=== PATIENT | male | born 1955 | race Caucasian/White ===

== ENCOUNTER 2018-09-24 05:51 | Observation (INO) | payer MEDICARE ==
[2018-09-24] MEDS ORDERED: NORMAL SALINE 1000 ML 1,000 ML IV ONE (06:23)
[2018-09-24 06:31] LABS: ABSOLUTE BASOPHILS # (AUTO) 0.1 10^3/uL (0.0-0.2); ABSOLUTE EOSINOPHILS # (AUTO) 0.2 10^3/uL (0.0-0.6); ABSOLUTE LYMPHOCYTES (AUTO) 2.6 10^3/uL (0.5-4.7); ABSOLUTE MONOCYTES (AUTO) 0.3 10^3/uL (0.1-1.4); ABSOLUTE NEUT (AUTO) 9.5 10^3/uL (1.7-8.2); BASOPHILS % (AUTO) 0.5 % (0-2); EOSINOPHILS % (AUTO) 1.6 % (0-6); HEMATOCRIT 43.2 % (37.9-51.0); HEMOGLOBIN 14.5 g/dL (13.5-17.0); LYMPHOCYTES % (AUTO) 20.8 % (13-45); MEAN CORPUSCULAR HEMOGLOBIN 30.5 pg (27.0-33.4); MEAN CORPUSCULAR HGB CONC 33.7 g/dL (32.0-36.0); MEAN CORPUSCULAR VOLUME 90 fl (80-97); MONOCYTES % (AUTO) 2.6 % (3-13); PLATELET COUNT 304 10^3/uL (150-450); RED BLOOD COUNT 4.77 10^6/uL (4.35-5.55); RED CELL DISTRIBUTION WIDTH 13.1 % (11.5-14.0); SEGMENTED NEUTROPHILS % (AUTO) 74.5 % (42-78); TOTAL CELLS COUNTED % (AUTO) 100 %; WHITE BLOOD COUNT 12.7 10^3/uL (4.0-10.5)
[2018-09-24 06:39] LABS: ALANINE AMINOTRANSFERASE 26 U/L (21-72); ALBUMIN 4.9 g/dL (3.5-5.0); ALKALINE PHOSPHATASE 90 U/L (38-126); ANION GAP 17 (5-19); ASPARTATE AMINO TRANSFERASE 29 U/L (17-59); BILIRUBIN,DIRECT 0.4 mg/dL (0.0-0.4); BILIRUBIN,TOTAL 0.6 mg/dL (0.2-1.3); BLOOD UREA NITROGEN 27 mg/dL (7-20); CALCIUM 9.3 mg/dL (8.4-10.2); CARBON DIOXIDE 25 mmol/L (22-30); CHLORIDE 101 mmol/L (98-107); CREATINE KINASE 46 U/L (55-170); GLUCOSE 223 mg/dL (75-110); POTASSIUM 4.1 mmol/L (3.6-5.0); SODIUM 142.5 mmol/L (137-145)
[2018-09-24 06:40] LABS: ALCOHOL < 10 mg/dL (NONE DETECTED)
--- NOTE | 2018-09-24 06:40 | ER Document Report ---
ED General - General Chief Complaint: Unresponsive Stated Complaint: TROUBLE BREATHING Time Seen by Provider: 09/24/18 06:00 Primary Care Provider: OSCAR FLETCHER MD [Primary Care Provider] - Follow up as needed Notes: 63-year-old male was brought in for altered mental status. The patient went to bed fine last night. According to the she woke up at about 430 and stated she thought her was snoring differently. She tried to wake him but was unable to wake him. She became upset and called 911. Somehow along the way CPR got started. Which was continued by police in the ED was applied which recomme nded no shock EMS arrived and the patient did have a pulse at that time. EMS stated the patient had a pulse, snoring respirations and pinpoint pupils on arrival. They gave the patient 2 mg of Narcan and the patient awoke. The patient has a history of chronic pain and prior opiate overdose. The patient is on fentanyl patch, methadone, oxycodone. The patient is awake and talking and denies any overdose attempt last night. Intentional or unintentional. The patient's only complaint is that his chest feels sore from the CPR. TRAVEL OUTSIDE OF THE [place] IN LAST 30 DAYS: No - Related Data Allergies/Adverse Reactions: Penicillins Allergy (Verified 09/24/18 08:23) Cedasvc-Own-Kdk Reductase Inhibitor Allergy (Verified 09/24/18 08:23) Sulfa (Sulfonamide Antibiotics) Allergy (Verified 09/24/18 08:23) Past Medical History - Social History Smoking Status: Unknown if Ever Smoked Family History: None - Past Medical History Cardiac Medical History: Reports: Hx Hypertension Past Surgical History: Reports: Hx Orthopedic Surgery - back, shoulder - Immunizations Hx Diphtheria, Pertussis, Tetanus Vaccination: Yes Review of Systems - Review of Systems Constitutional: denies: Chills, Fever EENT: denies: Throat pain Cardiovascular: Chest pain. denies: Dyspnea Respiratory: Hurts to breathe. denies: Short of breath Gastrointestinal: denies: Nausea, Vomiting Neurological/Psychological: Lost consciousness. denies: Suicidal ideation -: Yes All other systems reviewed and negative Physical Exam - Vital signs Vitals: Resp Pulse Ox 13 97 09/24/18 07:00 09/24/18 07:00 - Notes Notes: GENERAL_APPEARANCE: well_nourished, alert, cooperative VITALS: reviewed, see vital signs table. HEAD: no_swelling\tenderness on the head. EYES: PERRL -3 mm equal reactive, EOMI, conjunctiva_clear. NOSE: no_nasal_discharge. MOUTH: (-)decreased moisture. THROAT: no_throat_inflammation, no_airway_obstruction. no_lymphadenopathy NECK: supple, no_neck_tenderness, (-)thyromegaly. BACK: no_back_tenderness. CHEST_WALL: Diffuse parasternal chest tenderness and redness from compressions LUNGS: no_wheezing, no_rales, no_rhonchi, (-)accessory muscle use, good air exchange bilateral. HEART: normal_rate, normal_rhythm, normal_S1, normal_S2, (-)S3, (-)S4, no_murmur, no_rub. ABDOMEN: normal_BS, soft, no_abd_tenderness, (-)guarding, (-)rebound, no_organomegaly, no_abd_masses. EXTREMITIES: good pulses in all_extremities, no_swelling\tenderness in the extremities, no_edema. SKIN: warm, dry, good_color, no_rash. MENTAL_STATUS: speech_clear, oriented_X_3, flat_affect, responds_appropriately to questions. NEURO: Neg Motor or Sensory Deficits on exam, CN 2-12 intact, DTR 2+ symmetric x 4, No cerbellar signs Course - Re-evaluation Re-evalutation: 09/24/18 06:39 63-year-old male arrives with altered mental status who is now completely resolved. Patient was thought to be snoring differently by the . And could not be awakened. She started CPR because she stated she could not find a pulse please continue did on arrival and placed in the ED which recommended no shock upon EMS arrival the patient did have a pulse, was breathing and had pinpoint pupils. The patient responded to Narcan 2 mg. It is awake and talking. He denies any specific overdose attempt. The patient is on a lot of narcotics. He does history of prior unintentional overdose. We will check labs and CT scans. However all evidence seems to point to opioid overdose unintentional. 09/24/18 09:20 Patient is doing well here. Lab work was fairly unremarkable. Patient had a mildly elevated lactic acid but this was likely due to hypoxia due to under breathing due to opioids. And his deny any additional pain medicine than his norm. Screen was negative for opiates but he is chronically on them. Likely synthetic opioids do not show up on the drug screens all the time consistently. The patient does have some mild chest discomfort a little bit acute kidney injury due to his incidence we will keep him in the hospital overnight for observation trend his creatinine. Give him IV fluids. Continue to monitor his respiratory status. - Vital Signs Vital signs: Temp Pulse Resp BP Pulse Ox 98.0 F 15 104/72 93 09/24/18 08:16 09/24/18 09:00 09/24/18 07:01 09/24/18 09:00 - Laboratory Result Diagrams: 09/24/18 05:59 09/24/18 05:59 Laboratory results interpreted by me: 09/24/18 09/24/18 09/24/18 05:59 05:59 05:59 WBC 12.7 H Monocytes % 2.6 L Absolute Neutrophils 9.5 H BUN 27 H Creatinine 1.49 H Est GFR ( Amer) 57 L Est GFR (Non-Af Amer) 47 L Glucose 223 H Lactic Acid 3.3 H Creatine Kinase 46 L Urine Protein Urine Glucose (UA) 09/24/18 08:20 WBC Monocytes % Absolute Neutrophils BUN Creatinine Est GFR ( Amer) Est GFR (Non-Af Amer) Glucose Lactic Acid Creatine Kinase Urine Protein 30 H Urine Glucose (UA) >=500 H - Diagnostic Test Radiology reviewed: Reports reviewed Radiology results interpreted by me: 09/24/18 09:[address] 09/24/18 06:22 IMPRESSION: No acute findings. Chest X-Ray 09/24/18 06:24 IMPRESSION: No evidence of acute intrathoracic disease. Discharge - Discharge Clinical Impression: Acute kidney injury (nontraumatic) Opioid overdose Qualifiers: Encounter type: initial encounter Injury intent: undetermined intent Qualified Code(s): T40.2X4A - Poisoning by other opioids, undetermined, initial encounter Condition: Good Disposition: ADMITTED OBSERVATION Admitting Provider: Hospitalist Unit Admitted: Telemetry Referrals: OSCAR FLETCHER MD [Primary Care Provider] - Follow up as needed
--- NOTE | 2018-09-24 07:42 | EKG REPORT ---
SEVERITY:- ABNORMAL ECG - SINUS TACHYCARDIA MULTIPLE VENTRICULAR PREMATURE COMPLEXES ABNORMAL T, CONSIDER ISCHEMIA, INFERIOR LEADS : Confirmed by: Sonu Mahan MD 24-Sep-2018 07:41:52
--- NOTE | 2018-09-24 07:43 | RADIOLOGY REPORT (SQ) ---
EXAM DESCRIPTION: X-ray single view chest. CLINICAL HISTORY: 63 years Male, altered mental status COMPARISON: 07/02/2016 and 10/30/2014 TECHNIQUE: Single portable view of the chest performed on 09/24/2018 at 7:27 AM FINDINGS: The lungs are well expanded and are clear. There is no evidence of a pneumothorax. The cardiac silhouette is normal in size and configuration. The mediastinal contours are normal. No acute osseous abnormality is identified. No focal soft tissue abnormalities are seen. Lines and tubes: None. IMPRESSION: No evidence of acute intrathoracic disease.
--- NOTE | 2018-09-24 07:44 | RADIOLOGY REPORT (SQ) ---
EXAM DESCRIPTION: CT HEAD WITHOUT IV CONTRAST COMPLETED DATE/TME: 09/24/2018 06:22 CLINICAL HISTORY: 63 years Male, ALOC COMPARISON: None. TECHNIQUE: No contrast. Coronal and sagittal reformat. This exam was performed according to our departmental dose-optimization program, which includes automated exposure control, adjustment of the mA and/or kV according to patient size and/or use of iterative reconstruction technique. FINDINGS: No hemorrhage or infarct. No mass, mass effect, or midline shift. Atherosclerosis. Small right maxillary mucosal thickening. Brain and extra-axial structures appear otherwise intact. IMPRESSION: No acute findings.
[2018-09-24 08:39] LABS: APPEARANCE,URINE CLEAR; BILIRUBIN,URINE NEGATIVE (NEGATIVE); COLOR,URINE YELLOW; GLUCOSE, URINE >=500 mg/dL (NEGATIVE); KETONES,URINE NEGATIVE (NEGATIVE); LEUKOCYTE ESTERASE,URINE NEGATIVE (NEGATIVE); NITRITE,URINE NEGATIVE (NEGATIVE); PROTEIN,URINE 30 mg/dL (NEGATIVE); URINE SPECIFIC GRAVITY 1.016; UROBILINOGEN,URINE NEGATIVE mg/dL (<2.0)
[2018-09-24 08:51] LABS: URINE AMPHETAMINES SCREEN NEGATIVE; URINE BARBITURATES SCREEN NEGATIVE; URINE BENZODIAZEPINES SCREEN NEGATIVE; URINE COCAINE SCREEN NEGATIVE; URINE MARIJUANA (THC) SCREEN UNCONFIRMED POSITIVE; URINE METHADONE SCREEN NEGATIVE; URINE PHENCYCLIDINE SCREEN NEGATIVE
[2018-09-24] MEDS ORDERED: ONDANSETRON HCL INJ/PF 4 MG/2 ML SDV IV PRN (10:11)
[2018-09-24] MEDS ORDERED: ACETAMINOPHEN 325 MG TABLET PO PRN (10:11)
--- NOTE | 2018-09-24 10:35 | PDOC H&P ---
History of Present Illness Admission Date/PCP: 09/24/18 10:13 OSCAR FLETCHER MD Patient complains of: Unresponsiveness History of Present Illness: MARYCARMEN AJ III is a 63 year old male past medical history of chronic pain syndrome, spine fixation in 2008, depression, BPH, hypertension, osteoarthritis, TIAs x3, on methadone, oxycodone, and fentanyl patches brought to the emergency room by EMS with unresponsiveness. As per the pt went to the bed fine but around 4:30 AM he was snoring a lot and unarousable. So she called the EMS and started CPR according to her she did chest compressions may be 1 or 2 times by the time EMS arrived they connected the ED machine it says no shock. Found to be snoring a lot not arousable with pinpoint pupils. And was brought to the emergency room for further evaluation. He was given Narcan 1 dose he woke up after that and as per his he is back to the baseline mentation [place]. ER physician did the workup CT head which was negative chest x-ray was negative EKG was negative lab work but that is unremarkable except for slightly elevated creatinine, requested for medical consult for admission for the presumed drug overdose and AK I management. Patient has history of chronic pain syndrome taking fentanyl 25 mcg every 48 hours, oxycodone every 4 hours, and is also methadone. I went to the ER to evaluate the patient patient was comfortably in the bed alert and awake communicating very well. is at bedside able to provide a good information. Plan to put him in telemetry for observation for now. Past Medical History Cardiac Medical History: Reports: Hypertension EENT Medical History: Reports: Cataracts Neurological Medical History: Reports: Other - TIA x 3 Musculoskeltal Medical History: Reports: Arthritis Psychiatric Medical History: Reports: Depression Past Surgical History Past Surgical History: Reports: Orthopedic Surgery - back, shoulder, Vascular Surgery - carotid artery clean out Social History Information Source: Patient Lives with: Spouse/Significant other Smoking Status: Unknown if Ever Smoked Frequency of Alcohol Use: Rare Drugs: Marijuana Hx Prescription Drug Abuse: Yes Family History Family History: None Parental Family History Reviewed: Yes - Father has heart disease, sister has heart disease Children Family History Reviewed: Yes Sibling(s) Family History Reviewed.: Yes Medication/Allergy Home Medications: Venlafaxine HCl [Venlafaxine HCl ER] 75 mg PO DAILY 07/02/16 Clopidogrel Bisulfate [Plavix 75 mg Tablet] 75 mg PO DAILY 09/24/18 Fentanyl [Duragesic 25 Mcg/Hr Transdermal Patch] 1 each TD Q2D 09/24/18 Oxycodone HCl/Acetaminophen [Percocet 5-325 mg Tablet] 1 tab PO Q6HP PRN 09/24/18 Tamsulosin HCl [Flomax 0.4 mg Cap.sr] 0.4 mg PO DAILY 09/24/18 Allergies/Adverse Reactions: Penicillins Allergy (Verified 09/24/18 08:23) Ogozxxi-Sil-Add Reductase Inhibitor Allergy (Verified 09/24/18 08:23) Sulfa (Sulfonamide Antibiotics) Allergy (Verified 09/24/18 08:23) Review of Systems Constitutional: PRESENT: fever(s), other - Profound sweating Eyes: ABSENT: visual disturbances Ears: ABSENT: hearing changes Nose, Mouth, and Throat: ABSENT: sore throat Cardiovascular: ABSENT: dyspnea on exertion, palpitations Respiratory: PRESENT: cough, dyspnea Gastrointestinal: ABSENT: diarrhea, dysphagia, melena, nausea, vomiting Musculoskeletal: ABSENT: joint swelling Integumentary: ABSENT: rash, wounds Psychiatric: ABSENT: anxiety, depression, homidical ideation, suicidal ideation Physical Exam Vital Signs: Temp Pulse Resp BP Pulse Ox 98.0 F 10 L 119/70 96 09/24/18 08:16 09/24/18 10:00 09/24/18 10:00 09/24/18 10:00 Intake & Output 09/23/18 09/24/18 09/25/18 06:59 06:59 06:59 Intake Total 1000 Balance 1000 Weight 88.451 kg General appearance: PRESENT: no acute distress Head exam: PRESENT: atraumatic Eye exam: PRESENT: PERRLA Teeth exam: PRESENT: poor dentation Neck exam: ABSENT: carotid bruit, JVD, lymphadenopathy, thyromegaly Respiratory exam: PRESENT: decreased breath sounds Cardiovascular exam: PRESENT: RRR. ABSENT: diastolic murmur, rubs, systolic mur mur GI/Abdominal exam: PRESENT: normal bowel sounds, soft. ABSENT: distended, guarding, mass, organolmegaly, rebound, tenderness Extremities exam: PRESENT: full ROM. ABSENT: calf tenderness, clubbing, pedal edema Neurological exam: PRESENT: alert, awake, oriented to person, oriented to place, oriented to time, oriented to situation, CN II-XII grossly intact. ABSENT: motor sensory deficit Psychiatric exam: PRESENT: appropriate affect, normal mood. ABSENT: homicidal ideation, suicidal ideation Results Laboratory Results: 09/24/18 05:59 09/24/18 05:59 09/24/18 09/24/18 09/24/18 05:59 05:59 05:59 WBC 12.7 H RBC 4.77 Hgb 14.5 Hct 43.2 MCV 90 MCH 30.5 MCHC 33.7 RDW 13.1 Plt Count 304 Seg Neutrophils % 74.5 Lymphocytes % 20.8 Monocytes % 2.6 L Eosinophils % 1.6 Basophils % 0.5 Absolute Neutrophils 9.5 H Absolute Lymphocytes 2.6 Absolute Monocytes 0.3 Absolute Eosinophils 0.2 Absolute Basophils 0.1 Sodium 142.5 Potassium 4.1 Chloride 101 Carbon Dioxide 25 Anion Gap 17 BUN 27 H Creatinine 1.49 H Est GFR ( Amer) 57 L Est GFR (Non-Af Amer) 47 L Glucose 223 H Lactic Acid 3.3 H Calcium 9.3 Magnesium 1.9 Total Bilirubin 0.6 AST 29 ALT 26 Alkaline Phosphatase 90 Total Protein 8.0 Albumin 4.9 Urine Color Urine Appearance Urine pH Ur Specific [place] Urine Protein Urine Glucose (UA) Urine Ketones Urine Blood Urine Nitrite Ur Leukocyte Esterase Urine WBC (Auto) Urine RBC (Auto) 09/24/18 08:20 WBC RBC Hgb Hct MCV MCH MCHC RDW Plt Count Seg Neutrophils % Lymphocytes % Monocytes % Eosinophils % Basophils % Absolute Neutrophils Absolute Lymphocytes Absolute Monocytes Absolute Eosinophils Absolute Basophils Sodium Potassium Chloride Carbon Dioxide Anion Gap BUN Creatinine Est GFR ( Amer) Est GFR (Non-Af Amer) Glucose Lactic Acid Calcium Magnesium Total Bilirubin AST ALT Alkaline Phosphatase Total Protein Albumin Urine Color YELLOW Urine Appearance CLEAR Urine pH 5.0 Ur Specific [place] 1.016 Urine Protein 30 H Urine Glucose (UA) >=500 H Urine Ketones NEGATIVE Urine Blood NEGATIVE Urine Nitrite NEGATIVE Ur Leukocyte Esterase NEGATIVE Urine WBC (Auto) 1 Urine RBC (Auto) 3 09/24/18 09/24/18 05:59 05:59 Creatine Kinase 46 L Troponin I 0.013 Impressions: Head CT 09/24/18 06:22 IMPRESSION: No acute findings. Chest X-Ray 09/24/18 06:24 IMPRESSION: No evidence of acute intrathoracic disease. Assessment & Plan - Diagnosis (1) Opioid overdose Qualifiers: Encounter type: initial encounter Injury intent: undetermined intent Qualified Code(s): T40.2X4A - Poisoning by other opioids, undetermined, initial encounter Is this a current diagnosis for this admission?: Yes Plan: 09/24/2018 63-year-old male brought to the emergency room with altered mental status/acute and coagulopathy probably secondary to opioid overdose. After giving the Narcan he recovered. Plan is to put him in telemetry ,observation ,telemetry monitoring daily labs cardiac enzymes x3 ,consultation with Dr. Guevara Mcgarry. IV fluids normal saline 50 cc/h aspiration fall seizure precautions. Plan to restart his home medications. GI prophylaxis provided DVT prophylaxis was provided. To watch for the withdrawal symptoms. (2) Acute kidney injury (nontraumatic) Is this a current diagnosis for this admission?: Yes Plan: 09/24/2018-patient's admission creatinine is 2.49 his baseline creatinine is 1.32. AKA probably prerenal. Plan to give him IV fluids normal saline at 50 cc/h and recheck his labs tomorrow morning. (3) Chronic pain syndrome Is this a current diagnosis for this admission?: Yes Plan: 09/24/2018 patient has history of chronic pain syndrome he has spinal fixation was done in [address] Guevara Mcgarry as an outpatient. Patient is on methadone, oxycodone and fentanyl patches at home. To hold methadone while he was in the hospital. Consultation with Dr. Guevara Mcgarry was requested. (4) Depression Is this a current diagnosis for this admission?: Yes Plan: 09/24/2018 patient is given the history of depression is on Effexor at home 25 mg daily plan to restart Effexor while he was in the hospital. (5) Carotid artery stenosis Qualifiers: Laterality: bilateral Qualified Code(s): I65.23 - Occlusion and stenosis of bilateral carotid arteries Is this a current diagnosis for this admission?: Yes Plan: 09/24/2018 patient is given the history of coronary artery stenosis both sides patient and both arteries are cleaned, he is on Plavix. (6) BPH (benign prostatic hyperplasia) Is this a current diagnosis for this admission?: Yes Plan: 09/24/2018 patient is given the history of BPH she is on Flomax at home plan is to resume his home medications. (7) High serum lactic acid Is this a current diagnosis for this admission?: Yes Plan: 09/24/2018-lactic acid level on admission was 3.3 probably secondary to the attempted CPR at home. I am going to do the follow-up lactic acid level this evening. - Time Time Spent: 50 to 70 Minutes Critical Time spent with patient: 15-24 minutes Medications reviewed and adjusted accordingly: Yes Anticipated discharge: Home
[2018-09-24] MEDS: NORMAL SALINE 1000 ML 1,000 ML IV PRN (11:53)
[2018-09-24] MEDS ORDERED: FENTANYL 25 MCG/HR PATCH.TD72 TD SCH (12:00)
[2018-09-24] MEDS: FAMOTIDINE 20 MG TABLET PO SCH (21:07)
[2018-09-24] MEDS: OXYCODONE-ACETAMINOPHEN 5-325 MG TABLET PO PRN (21:07)
[2018-09-24 23:24] LABS: APPEARANCE,URINE SLIGHTLY-CLOUDY; BILIRUBIN,URINE NEGATIVE (NEGATIVE); COLOR,URINE YELLOW; GLUCOSE, URINE NEGATIVE (NEGATIVE); KETONES,URINE NEGATIVE (NEGATIVE); LEUKOCYTE ESTERASE,URINE NEGATIVE (NEGATIVE); NITRITE,URINE NEGATIVE (NEGATIVE); PROTEIN,URINE NEGATIVE (NEGATIVE); URINE SPECIFIC GRAVITY 1.023; UROBILINOGEN,URINE NEGATIVE mg/dL (<2.0)
[2018-09-25 06:05] LABS: ABSOLUTE BASOPHILS # (AUTO) 0.1 10^3/uL (0.0-0.2); ABSOLUTE EOSINOPHILS # (AUTO) 0.1 10^3/uL (0.0-0.6); ABSOLUTE LYMPHOCYTES (AUTO) 2.9 10^3/uL (0.5-4.7); ABSOLUTE MONOCYTES (AUTO) 0.7 10^3/uL (0.1-1.4); ABSOLUTE NEUT (AUTO) 6.2 10^3/uL (1.7-8.2); BASOPHILS % (AUTO) 0.6 % (0-2); EOSINOPHILS % (AUTO) 1.3 % (0-6); HEMATOCRIT 37.5 % (37.9-51.0); HEMOGLOBIN 12.9 g/dL (13.5-17.0); LYMPHOCYTES % (AUTO) 29.3 % (13-45); MEAN CORPUSCULAR HEMOGLOBIN 30.5 pg (27.0-33.4); MEAN CORPUSCULAR HGB CONC 34.4 g/dL (32.0-36.0); MEAN CORPUSCULAR VOLUME 89 fl (80-97); MONOCYTES % (AUTO) 6.8 % (3-13); PLATELET COUNT 233 10^3/uL (150-450); RED BLOOD COUNT 4.22 10^6/uL (4.35-5.55); RED CELL DISTRIBUTION WIDTH 12.9 % (11.5-14.0); TOTAL CELLS COUNTED % (AUTO) 100 %
[2018-09-25 06:10] LABS: INTERNATIONAL RATION (INR) 1.07; PROTHROMBIN TIME 14.5 SEC (11.4-15.4)
[2018-09-25 06:21] LABS: ALANINE AMINOTRANSFERASE 26 U/L (21-72); ALBUMIN 3.8 g/dL (3.5-5.0); ALKALINE PHOSPHATASE 58 U/L (38-126); ANION GAP 7 (5-19); ASPARTATE AMINO TRANSFERASE 21 U/L (17-59); BILIRUBIN,DIRECT 0.2 mg/dL (0.0-0.4); BILIRUBIN,TOTAL 0.9 mg/dL (0.2-1.3); BLOOD UREA NITROGEN 17 mg/dL (7-20); CALCIUM 8.9 mg/dL (8.4-10.2); CARBON DIOXIDE 27 mmol/L (22-30); CHLORIDE 108 mmol/L (98-107); GLUCOSE 95 mg/dL (75-110); POTASSIUM 4.4 mmol/L (3.6-5.0); SODIUM 142.2 mmol/L (137-145); TOTAL PROTEIN 6.3 g/dL (6.3-8.2); TRIGLYCERIDES 83 mg/dL (<150)
[2018-09-25 06:33] LABS: DIRECT LDL 79 mg/dL (<100)
--- NOTE | 2018-09-25 08:10 | EKG REPORT ---
SEVERITY:- NORMAL ECG - SINUS RHYTHM : Confirmed by: Sonu Mahan MD 25-Sep-2018 08:10:22
[2018-09-25] MEDS: NORMAL SALINE 1000 ML 1,000 ML IV PRN (08:53)
[2018-09-25] MEDS: FAMOTIDINE 20 MG TABLET PO SCH (09:17)
[2018-09-25] MEDS: OXYCODONE-ACETAMINOPHEN 5-325 MG TABLET PO PRN ×2 (09:17→15:47)
[2018-09-25] MEDS ORDERED: CLOPIDOGREL BISULFATE 75 MG TABLET PO SCH (10:00)
[2018-09-25] MEDS ORDERED: TAMSULOSIN HCL 0.4 MG CAP.SR.24H PO SCH (10:00)
[2018-09-25] MEDS ORDERED: VENLAFAXINE HCL 75 MG CAP.SR.24H PO SCH (10:00)
[2018-09-25] MEDS ORDERED: ENOXAPARIN SODIUM INJ 40 MG/0.4 ML DISP.SYRIN SUBCUT SCH (10:00)
--- NOTE | 2018-09-25 10:16 | PDOC DISCHARGE SUMMARY ---
General - Admit/Disc Date/PCP Admission Date/Primary Care Provider: 09/24/18 10:13 OSCAR FLETCHER MD Discharge Date: 09/25/18 - Discharge Diagnosis (1) Acute kidney injury (nontraumatic) Is this a current diagnosis for this admission?: Yes (2) Chronic pain syndrome Is this a current diagnosis for this admission?: Yes (3) Depression Is this a current diagnosis for this admission?: Yes (5) Opioid overdose Is this a current diagnosis for this admission?: Yes - Additional Information Resuscitation Status: Full Code Discharge Diet: Regular Discharge Activity: Activity As Tolerated Home Medications: Venlafaxine HCl [Venlafaxine HCl ER] 75 mg PO DAILY 07/02/16 Aspirin [Ecotrin 81 mg EC Tablet] 81 mg PO DAILY 09/24/18 Clopidogrel Bisulfate [Plavix 75 mg Tablet] 75 mg PO DAILY 09/24/18 Fentanyl [Duragesic 25 mcg/hr Transdermal Patch] 1 each TD Q2D 09/24/18 Oxycodone HCl/Acetaminophen [Percocet 5-325 mg Tablet] 1 tab PO Q6HP PRN 09/24/18 Tamsulosin HCl [Flomax 0.4 mg Cap.sr] 0.4 mg PO DAILY 09/24/18 Acetaminophen [Tylenol 325 mg Tablet] 650 mg PO Q4HP PRN tablet 09/25/18 Flu Vacc [id number](6Mos Up)/Pf [Fluarix Adlt Quad Vac 0.5 ml Syr] 0.5 ml IM .DISCHARGE PRN syringe 09/25/18 History of Present Illness History of Present Illness: MARYCARMEN AJ III is a 63 year old male Hospital Course Hospital Course: MARYCARMEN AJ III is a 63 year old male past medical history of chronic pain syndrome, spine fixation in 2008, depression, BPH, hypertension, osteoarthritis, TIAs x3, on methadone, oxycodone, and fentanyl patches brought to the emergency room by EMS with unresponsiveness. As per the pt went to the bed fine but around 4:30 AM he was snoring a lot and unarousable. So she called the EMS and started CPR according to her she did chest compressions may be 1 or 2 times by the time EMS arrived they connected the ED machine it says no shock. Found to be snoring a lot not arousable with pinpoint pupils. And was brought to the emergency room for further evaluation. He was given Narcan 1 dose he woke up after that and as per his he is back to the baseline mentation [place]. ER physician did the workup CT head which was negative chest x-ray was negative EKG was negative lab work but that is unremarkable except for slightly elevated creatinine, requested for medical consult for admission for the presumed drug overdose and AK I management. Patient has history of chronic pain syndrome taking fentanyl 25 mcg every 48 hours, oxycodone every 4 hours, and is also methadone. I went to the ER to evaluate the patient patient was comfortably in the bed alert and awake communicating very well. is at bedside able to provide a good information. Plan to put him in telemetry for observation for now. Patient was hydrated with IV fluid overnight. He has known sleep apnea with a positive sleep study and has refused to wear CPAP at home. This along with his chronic opioid use combined to cause him to be unarousable. He is agreeable to wear the CPAP now. Will write order for CPAP and have discharge planning arrange for home. He will follow up with his primary care provider in one week Physical Exam Vital Signs: Temp Pulse Resp BP Pulse Ox 98.3 F 73 17 180/99 H 98 09/25/18 07:24 09/25/18 07:24 09/25/18 07:24 09/25/18 07:24 09/25/18 07:24 Intake & Output 09/24/18 09/25/18 09/26/18 06:59 06:59 06:59 Intake Total 1450 1000 Output Total 400 Balance 1050 1000 Weight 76.4 kg General appearance: PRESENT: no acute distress, well-developed, well-nourished Head exam: PRESENT: atraumatic, normocephalic Eye exam: PRESENT: conjunctiva pink, EOMI, PERRLA. ABSENT: scleral icterus Ear exam: PRESENT: normal external ear exam Mouth exam: PRESENT: moist, tongue midline Teeth exam: PRESENT: poor dentation Neck exam: PRESENT: carotid bruit. ABSENT: JVD, lymphadenopathy, thyromegaly Respiratory exam: PRESENT: clear to auscultation and[place]. ABSENT: rales, rhonchi, wheezes Cardiovascular exam: PRESENT: RRR. ABSENT: diastolic murmur, rubs, systolic murmur Pulses: PRESENT: normal dorsalis pedis pul Vascular exam: PRESENT: normal capillary refill GI/Abdominal exam: PRESENT: ascites Rectal exam: PRESENT: deferred Extremities exam: PRESENT: full ROM. ABSENT: calf tenderness, clubbing, pedal edema Neurological exam: PRESENT: alert, awake, oriented to person, oriented to place, oriented to time, oriented to situation, CN II-XII grossly intact. ABSENT: motor sensory deficit Psychiatric exam: PRESENT: appropriate affect, normal mood. ABSENT: homicidal ideation, suicidal ideation Skin exam: PRESENT: dry, warm - Echymotic area on left forearm Results Laboratory Results: 09/25/18 05:46 09/25/18 05:46 09/24/18 09/24/18 09/25/18 13:11 22:50 05:46 WBC 10.0 RBC 4.22 L Hgb 12.9 L Hct 37.5 L MCV 89 MCH 30.5 MCHC 34.4 RDW 12.9 Plt Count 233 Seg Neutrophils % 62.0 Lymphocytes % 29.3 Monocytes % 6.8 Eosinophils % 1.3 Basophils % 0.6 Absolute Neutrophils 6.2 Absolute Lymphocytes 2.9 Absolute Monocytes 0.7 Absolute Eosinophils 0.1 Absolute Basophils 0.1 Sodium Potassium Chloride Carbon Dioxide Anion Gap BUN Creatinine Est GFR ( Amer) Est GFR (Non-Af Amer) Glucose Lactic Acid 1.5 Calcium Magnesium Total Bilirubin AST ALT Alkaline Phosphatase Total Protein Albumin Triglycerides Cholesterol LDL Cholesterol Direct VLDL Cholesterol HDL Cholesterol TSH Urine Color YELLOW Urine Appearance SLIGHTLY-CLOUDY Urine pH 5.0 Ur Specific [place] 1.023 Urine Protein NEGATIVE Urine Glucose (UA) NEGATIVE Urine Ketones NEGATIVE Urine Blood NEGATIVE Urine Nitrite NEGATIVE Ur Leukocyte Esterase NEGATIVE Urine WBC (Auto) 1 Urine RBC (Auto) 0 09/25/18 09/25/18 05:46 05:46 WBC RBC Hgb Hct MCV MCH MCHC RDW Plt Count Seg Neutrophils % Lymphocytes % Monocytes % Eosinophils % Basophils % Absolute Neutrophils Absolute Lymphocytes Absolute Monocytes Absolute Eosinophils Absolute Basophils Sodium 142.2 Potassium 4.4 Chloride 108 H Carbon Dioxide 27 Anion Gap 7 BUN 17 Creatinine 0.90 Est GFR ( Amer) > 60 Est GFR (Non-Af Amer) > 60 Glucose 95 Lactic Acid Calcium 8.9 Magnesium 1.9 Total Bilirubin 0.9 AST 21 ALT 26 Alkaline Phosphatase 58 Total Protein 6.3 Albumin 3.8 Triglycerides 83 Cholesterol 127.40 LDL Cholesterol Direct 79 VLDL Cholesterol 17.0 HDL Cholesterol 32 L TSH 0.59 Urine Color Urine Appearance Urine pH Ur Specific [place] Urine Protein Urine Glucose (UA) Urine Ketones Urine Blood Urine Nitrite Ur Leukocyte Esterase Urine WBC (Auto) Urine RBC (Auto) 09/24/18 09/24/18 09/24/18 05:59 05:59 11:25 Creatine Kinase 46 L 40 L Troponin I 0.013 09/24/18 09/24/18 09/24/18 11:25 16:45 16:45 Creatine Kinase 49 L Troponin I 0.060 0.043 09/24/18 09/24/18 22:45 22:45 Creatine Kinase 37 L Troponin I 0.030 Impressions: Head CT 09/24/18 06:22 IMPRESSION: No acute findings. Chest X-Ray 09/24/18 06:24 IMPRESSION: No evidence of acute intrathoracic disease. Qualifiers - * PATIENT BEING DISCHARGED WITH ANY OF THE FOLLOWING DIAGNOSIS: No Plan Discharge Plan: Home with . CPAP at HS Time Spent: Less than 30 Minutes
--- NOTE | 2018-09-25 11:58 | CONSULTATION REPORT E ---
Consultation Report NAME: MARYCARMEN AJ III : 1955 AGE: 63Y DATE: 09/25/2018 421 B TO: PHOEBE ROPER M.D. FROM: ROMEO CABRAL M.D. Requesting Physician CHIEF COMPLAINT: UNRESPONSIVENESS. HISTORY OF PRESENT ILLNESS: This is a 63-year-old patient well known to the [facility]. He has been managed for a number of years on medication which include fentanyl patch and Percocet. Current dosage is 25 mcg fentanyl q. 48 hours and Percocet 5 mg q. 6 hours as needed. He has generally been compliant. Has a history of difficulty with other medications in the past and a history of a use of marijuana but no overt identification of street drugs such as cocaine or heroin. He was notably found to be difficult to arouse from sleep on the morning of the . His attempted to arouse him and noted that he was snoring quite deeply. EMS was contacted. CPR was started. Narcan was given and after 1 dose apparently he became more arousable. He was taken to the hospital for supportive care, maintenance, and management. Consultation was made for pain management assistance as well. There is no evidence of myocardial infarction on existing laboratory studies. EKG was normal. His urine drug screen was negative for opioids and positive for marijuana. On consultation with the patient this morning on 09/25/2018 he notes that he has had viral syndrome or flu-like symptoms for the past week. He notes a bit early in the morning on the , approximately 1:00 or 2:00 a.m. he took cold medicine which included NyQuil p.m. followed by his Percocet medication. He notes he is known to be a very heavy deep sleeper at any rate and feels that perhaps the NyQuil is what made it more difficult for him to be aroused. In further discussion with the patient he notes that his pain is adequately controlled while in the hospital. 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 His was not available to discuss the situation with her as well and her impression of the overall events and medication used. PAST MEDICAL HISTORY: Remarkable for hypertension and prior TIAs, osteoarthritis, and depression. PAST SURGICAL HISTORY: Neck and back surgery, peripheral vascular surgery, and carotid surgery. SOCIAL HISTORY: He is and he has a significantly supportive spouse. He denies smoking and states that he uses marijuana infrequently. He denies history of alcohol abuse or misuse. FAMILY HISTORY: Noncontributory, though it is remarkable of cardiac disease. MEDICATIONS: Include: 1. Venlafaxine. 2. Clopidogrel. 3. Fentanyl 25 mcg q. 48 hours. 4. Percocet 5/325 q. 6 hours. 5. Flomax. ALLERGIES: PENICILLIN AND SULFA. REVIEW OF SYSTEMS: CONSTITUTIONAL: Recent cold and flu. HEENT: Unremarkable. CARDIAC: No shortness of breath or chest pain. GASTROINTESTINAL: Negative for diarrhea, nausea, or vomiting. MUSCULOSKELETAL: Positive for joint pain and back pain. SKIN: Unremarkable. No bruising. PSYCHIATRIC: History of depression; no suicidal ideation. LABORATORY DATA: As per chart including drug screen as mentioned. PHYSICAL EXAMINATION: GENERAL: It should be noted, he was sound asleep upon arrival and it was difficult to arouse him. He did, however, arouse to a coherent and appropriate state. HEENT: Noncontributory. SKIN: Warm and dry, some bruising is present on his arms. NECK: Supple. CHEST: Good excursion to deep inspiration. ABDOMEN: Obese. EXTREMITIES: Upper and lower extremities are symmetrical and well-developed. No deformities are noted. NEUROLOGICAL: Mental status is appropriate for person, place, and time. Speech is clear and fluent. PSYCHIATRIC: No overt depression. IMPRESSION: 1. SUSPECTED ALTERED MENTAL STATUS SECONDARY TO MEDICATIONS AND CONCURRENT VIRAL SYNDROME AND USE OF COLD MEDICATION. 2. MULTIPLE MEDICAL PROBLEMS INCLUDING CAROTID VASCULAR DISEASE, DEPRESSION, AND PROSTATIC HYPERTROPHY. RECOMMENDATION: I have discussed the use of street drugs and concurrent use of cold medications in the presence of narcotic use. Also, I have discussed weaning the fentanyl patch perhaps to a slightly lower dose. Outpatient management will be continued. DICTATING PHYSICIAN: PHOEBE ROPER M.D. [id number] PHY#: [id number] ID: [id number] JOB#: [id number] ACCT: [id number] cc:PHOEBE ROPER M.D. > [facility]
[2018-09-25 16:12] VITALS: BP 153/76
== END 2018-09-25 17:00 | disposition home or self-care (01) ==
LOC: ER 05:51 → EH 10:13 → 4W 14:47
PROVIDERS: ADMIT Internal Medicine; ATTEND Internal Medicine
DX: T40.2X4A Poisoning by other opioids, undetermined, initial encounter (principal); N17.9 Acute kidney failure, unspecified; G89.4 Chronic pain syndrome; F32.9 Major depressive disorder, single episode, unspecified; G47.30 Sleep apnea, unspecified; S40.022A Contusion of left upper arm, initial encounter; X58.XXXA Exposure to other specified factors, initial encounter; R06.83 Snoring; N40.0 Benign prostatic hyperplasia without lower urinary tract symptoms; M19.90 Unspecified osteoarthritis, unspecified site; R82.5 Elevated urine levels of drugs, medicaments and biological substances; B34.9 Viral infection, unspecified; E66.9 Obesity, unspecified; R50.9 Fever, unspecified; R61 Generalized hyperhidrosis; I65.23 Occlusion and stenosis of bilateral carotid arteries; R05 Cough; R06.00 Dyspnea, unspecified; R74.0 Nonspecific elevation of levels of transaminase and lactic acid dehydrogenase [LDH]; R07.1 Chest pain on breathing; R07.89 Other chest pain; R79.1 Abnormal coagulation profile; Z79.82 Long term (current) use of aspirin; Z79.899 Other long term (current) drug therapy; Z23 Encounter for immunization; Z86.73 Personal history of transient ischemic attack (TIA), and cerebral infarction without residual deficits; Z79.02 Long term (current) use of antithrombotics/antiplatelets; Z96.698 Presence of other orthopedic joint implants; Z79.891 Long term (current) use of opiate analgesic; Z91.19 Patient's noncompliance with other medical treatment and regimen; Z82.49 Family history of ischemic heart disease and other diseases of the circulatory system; Z98.890 Other specified postprocedural states
CPT/HCPCS: 93005 ×2; 99285; 96360; 36415 ×2; 87040; 80307 ×2; 82550; 83735 ×2; 84443; 85025 ×2; 85610; 80053 ×2; 81001; 84484; 83605; 80061; 71045; 70450; 90686; 93010 ×2; G0008; A9270 ×7; J1650; J3490; J7030 ×2; 90471; G0378

== ENCOUNTER 2019-01-20 11:33 | Observation (INO) | payer MEDICARE ==
[2019-01-20] MEDS ORDERED: NORMAL SALINE 1000 ML 1,000 ML IV ONE (11:48)
[2019-01-20 12:02] LABS: ABSOLUTE BASOPHILS # (AUTO) 0.1 10^3/uL (0.0-0.2); ABSOLUTE EOSINOPHILS # (AUTO) 0.1 10^3/uL (0.0-0.6); ABSOLUTE LYMPHOCYTES (AUTO) 1.3 10^3/uL (0.5-4.7); ABSOLUTE MONOCYTES (AUTO) 0.6 10^3/uL (0.1-1.4); ABSOLUTE NEUT (AUTO) 6.7 10^3/uL (1.7-8.2); BASOPHILS % (AUTO) 1.1 % (0-2); EOSINOPHILS % (AUTO) 1.3 % (0-6); LYMPHOCYTES % (AUTO) 14.4 % (13-45); MEAN CORPUSCULAR HEMOGLOBIN 30.9 pg (27.0-33.4); MEAN CORPUSCULAR HGB CONC 34.1 g/dL (32.0-36.0); MEAN CORPUSCULAR VOLUME 91 fl (80-97); MONOCYTES % (AUTO) 7.3 % (3-13); PLATELET COUNT 273 10^3/uL (150-450); RED BLOOD COUNT 4.53 10^6/uL (4.35-5.55); RED CELL DISTRIBUTION WIDTH 13.4 % (11.5-14.0); SEGMENTED NEUTROPHILS % (AUTO) 75.9 % (42-78); TOTAL CELLS COUNTED % (AUTO) 100 %; WHITE BLOOD COUNT 8.8 10^3/uL (4.0-10.5)
--- NOTE | 2019-01-20 12:04 | ER Document Report ---
ED General - General Chief Complaint: Syncope Stated Complaint: DEHYDRATION Time Seen by Provider: 01/20/19 11:47 Primary Care Provider: OSCAR FLETCHER MD [Primary Care Provider] - Follow up as needed TRAVEL OUTSIDE OF THE [place] IN LAST 30 DAYS: No - HPI Notes: Patient is a 63-year-old male that presents to the emergency department for chief complaint of syncope. Just prior to arrival patient was sitting on his couch having a conversation with his when he had a complete syncopal episode. He states he thought he saw bright white lights and then went completely unresponsive. Patient did witness this and states his head fell back on the couch and he was gurgling and unresponsive for a few minutes. When EMS arrived they report patient had a blood pressure of 60/44 but was awake. Patient received 1500 mL's of IV fluids prior to coming into the ED. Patient does have a history of syncope once in the past but denies any known dysrhythmia. He denied any prodrome of palpitations, shortness of breath, lightheadedness, diaphoresis, nausea or vomiting. Currentl y he states he feels back to normal. He does state yesterday he slept all day and stayed in bed without eating or drinking. He denies being outside working in the heat today. Past Medical History: Anxiety, BPH Past Surgical History: Carotid endarterectomy bilateral Social History: Denies drug and alcohol use Family History: Reviewed and noncontributory for presenting illness Allergies: Reviewed, see documented allergy list. REVIEW OF SYSTEMS: CONSTITUTIONAL : No fever No chills No diaphoresis No recent illness EENT: vision changes No congestion No sore throat CARDIOVASCULAR: No chest pain syncope No palpitations RESPIRATORY: No shortness of breath No cough No difficulty breathing GASTROINTESTINAL: No abdominal pain No nausea No vomiting No diarrhea GENITOURINARY: No dysuria No hematuria No difficulty urinating MUSCULOSKELETAL: No back pain No leg pain No arm pain SKIN: No rashes No lesions LYMPHATIC: No swollen, enlarged glands. NEUROLOGICAL: No lightheadedness No headache No weakness No paresthesias PSYCHIATRIC: No anxiety No depression PHYSICAL EXAMINATION: Vital signs reviewed, nursing noted reviewed. GENERAL: Well-appearing, well-nourished and in no acute distress. HEAD: Atraumatic, normocephalic. EYES: Eyes appear normal, extraocular movements intact, sclera anicteric, conjunctiva are normal. ENT: nares patent, oropharynx clear without exudates. Moist mucous membranes. NECK: Normal range of motion, supple without lymphadenopathy LUNGS: Breath sounds clear to auscultation bilaterally and equal. No wheezes rales or rhonchi. HEART: Regular rate and rhythm without murmurs, +2/4 bilateral radial and DP pulse ABDOMEN: Soft, nontender, normoactive bowel sounds. No rebound, guarding, or rigidity. No masses appreciated. EXTREMITIES: Nontender, good range of motion, no pitting or edema. NEUROLOGICAL: No focal neurological deficits. Moves all extremities spontaneously Motor and sensory grossly intact on exam. PSYCH: Normal mood, normal affect. SKIN: Warm, Dry, normal turgor, no rashes or lesions noted on exposed skin - Related Data Allergies/Adverse Reactions: Penicillins Allergy (Verified 09/24/18 08:23) Qyeutks-Mdq-Fzx Reductase Inhibitor Allergy (Verified 09/24/18 08:23) Sulfa (Sulfonamide Antibiotics) Allergy (Verified 09/24/18 08:23) Past Medical History - Social History Smoking Status: Never Smoker Family History: None - Past Medical History Cardiac Medical History: Reports: Hx Hypertension Renal/ Medical History: Denies: Hx Peritoneal Dialysis Musculoskeletal Medical History: Reports Hx Arthritis Psychiatric Medical History: Reports: Hx Depression Past Surgical History: Reports: Hx Orthopedic Surgery - back, shoulder, Hx Vascular Surgery - carotid artery clean out - Immunizations Hx Diphtheria, Pertussis, Tetanus Vaccination: Yes Physical Exam - Vital signs Vitals: Temp BP 97.8 F 118/75 01/20/19 11:41 01/20/19 11:41 Course - Re-evaluation Re-evalutation: 01/20/19 12:04 Vitals reviewed. Nursing notes reviewed. Patient had an initial blood pressure of 60/40 for EMS. He has received 1500 IV fluids prior to arrival and currently has a stable blood pressure. He reports being asymptomatic. He was placed on telemetry monitoring. EKG shows no ectopy or ischemia. Patient was sitting on the couch and had no injury during his syncopal event. He is neurologically intact currently and I do not feel CT imaging of his brain is indicated at this time. Laboratory 01/20/19 01/20/19 01/20/19 11:52 11:52 11:52 WBC 8.8 RBC 4.53 Hgb 14.0 Hct 41.0 MCV 91 MCH 30.9 MCHC 34.1 RDW 13.4 Plt Count 273 Seg Neutrophils % 75.9 Lymphocytes % 14.4 Monocytes % 7.3 Eosinophils % 1.3 Basophils % 1.1 Absolute Neutrophils 6.7 Absolute Lymphocytes 1.3 Absolute Monocytes 0.6 Absolute Eosinophils 0.1 Absolute Basophils 0.1 Sodium 139.5 Potassium 4.6 Chloride 102 Carbon Dioxide 29 Anion Gap 9 BUN 20 Creatinine 1.33 H Est GFR ( Amer) > 60 Est GFR (Non-Af Amer) 54 L Glucose 119 H Calcium 8.8 Total Bilirubin 1.0 Direct Bilirubin 0.2 Neonat Total Bilirubin Not Reportable Neonat Direct Bilirubin Not Reportable Neonat Indirect Bili Not Reportable AST 37 ALT 47 Alkaline Phosphatase 59 Troponin I < 0.012 Total Protein 6.8 Albumin 3.8 Chest X-Ray 01/20/19 11:47 IMPRESSION: NO ACUTE RADIOGRAPHIC FINDING IN THE CHEST. 01/20/19 13:05 Patient's lab work shows slight elevation in creatinine at 1.33. His troponin is negative. The remainder of his work-up is unremarkable. Patient has had a stable blood pressure since receiving IV fluids in route to the emergency room. He is remained asymptomatic in the ED. He did have a heart rate of 56 while I was talking to him on the monitor but did not feel lightheaded during that episode. He denies history of bradycardia in the past. His telemetry monitoring has not alarmed any bradycardia lower than 65. Patient syncope may have been related to dehydration causing his acute kidney injury however bradycardia and dysrhythmia are also a possibility. Patient will be admitted to the hospital for telemetry monitoring and further cardiac evaluation as well as fluids and monitoring of his kidney function. Patient is in agreement with this plan of care. Care discussed with Dr. Givens who is accepted admission. - Vital Signs Vital signs: Temp Pulse Resp BP Pulse Ox 97.8 F 118/75 96 01/20/19 11:41 01/20/19 11:41 01/20/19 11:47 - Laboratory Result Diagrams: 01/20/19 11:52 01/20/19 11:52 Laboratory results interpreted by me: 01/20/19 11:52 Creatinine 1.33 H Est GFR (Non-Af Amer) 54 L Glucose 119 H - EKG Interpretation by Me Additional EKG results interpreted by me: 01/20/19 12:03 Interpreted by myself 1146: Normal sinus rhythm, rate 60, normal axis, no ectopy, no significant change from 09/25/2018 Discharge - Discharge Clinical Impression: Dehydration, DEBBI (acute kidney injury) Syncope Qualifiers: Syncope type: unspecified Qualified Code(s): R55 - Syncope and collapse Condition: Stable Disposition: ADMITTED OBSERVATION Admitting Provider: Tosha (Hospitalist) Unit Admitted: Telemetry
[2019-01-20 12:22] LABS: ALANINE AMINOTRANSFERASE 47 U/L (21-72); ALBUMIN 3.8 g/dL (3.5-5.0); ALKALINE PHOSPHATASE 59 U/L (38-126); ANION GAP 9 (5-19); ASPARTATE AMINO TRANSFERASE 37 U/L (17-59); BILIRUBIN,DIRECT 0.2 mg/dL (0.0-0.4); BLOOD UREA NITROGEN 20 mg/dL (7-20); CALCIUM 8.8 mg/dL (8.4-10.2); CARBON DIOXIDE 29 mmol/L (22-30); CHLORIDE 102 mmol/L (98-107); GLUCOSE 119 mg/dL (75-110); POTASSIUM 4.6 mmol/L (3.6-5.0); SODIUM 139.5 mmol/L (137-145); TOTAL PROTEIN 6.8 g/dL (6.3-8.2)
--- NOTE | 2019-01-20 12:24 | RADIOLOGY REPORT (SQ) ---
EXAM DESCRIPTION: CHEST SINGLE VIEW COMPLETED DATE/TIME: 01/20/2019 12:08 pm REASON FOR STUDY: syncope COMPARISON: 09/24/2018, 07/02/2016, 10/30/2014 EXAM PARAMETERS: NUMBER OF VIEWS: One view. TECHNIQUE: Single frontal radiographic view of the chest acquired. RADIATION DOSE: NA LIMITATIONS: None. FINDINGS: LUNGS AND PLEURA: No opacities, masses or pneumothorax. No pleural effusion. MEDIASTINUM AND HILAR STRUCTURES: No masses. Contour normal. HEART AND VASCULAR STRUCTURES: Heart normal in size. Normal vasculature. BONES: Old right healed rib fractures. Old left humeral head replacement. HARDWARE: Surgical clips in the neck OTHER: No other significant finding. IMPRESSION: NO ACUTE RADIOGRAPHIC FINDING IN THE CHEST. TECHNICAL DOCUMENTATION: JOB ID: [id number] [employer]- All Rights Reserved Reading location - IP/workstation name: [email or web address]
--- NOTE | 2019-01-20 14:08 | EKG REPORT ---
SEVERITY:- NORMAL ECG - SINUS RHYTHM : Confirmed by: Katey Lorenzo MD 20-Jan-2019 14:07:12
[2019-01-20] MEDS: NORMAL SALINE 1000 ML 1,000 ML IV PRN (15:19)
--- NOTE | 2019-01-20 16:04 | PDOC H&P ---
History of Present Illness Admission Date/PCP: OSCAR FLETCHER MD Patient complains of: syncope History of Present Illness: MARYCARMEN AJ III is a 63 year old male with a past medical history of chronic low back pain, depression, BPH, hypertension, prior history of TIAs x3 and history of bilateral carotid endarterectomy who was brought in due to syncope. This baseline. is at the bedside. Patient has been apparently fine and to this morning around 10:30 in the morning. says that they were talking to each other on the couch and that the next minute she noted he was unconscious with his head slouch against the back of the couch. She says he will try to stimulate him and he regained consciousness after 1 to 2 minutes. No urinary or bowel incontinence. He says she did notice that he was gurgling and it did not appear that he was spontaneously breathing. She says she checked his blood pressure at that time and it was low at 71/40. She called EMS and upon assessment by EMS, his pressure was noted to be at 60/44. He was given IV fluids and his blood pressures recovered. Patient is back to his baseline. He does say that he had some photo sensitive prior to the syncopal episode. He denies prior history of seizure. Denies chest pain or palpitations. Patient has had prior episodes of syncope before. In his previous admission, it was initially suspected polypharmacy from opiates contributed to his symptoms as he was previously on methadone, oxycodone and fentanyl patches before for his chronic low back pain. Patient and says that he has been taking all of these medications for several months now. He does say that he only takes oxycodone rarely for severe flare of his back pain. Previous notes mentioned that patient has a known sleep apnea and has not been compliant to CPAP. However patient and says that he has not had a sleep study before although this has been recommended by his PCP. Past Medical History Cardiac Medical History: Reports: Hypertension Musculoskeltal Medical History: Reports: Arthritis Psychiatric Medical History: Reports: Depression Past Surgical History Past Surgical History: Reports: Orthopedic Surgery - back, shoulder, Vascular Surgery - carotid artery clean out Social History Smoking Status: Never Smoker Frequency of Alcohol Use: Rare Drugs: Marijuana Hx Prescription Drug Abuse: Yes Family History Family History: None Parental Family History Reviewed: Yes - No premature CAD Children Family History Reviewed: No Sibling(s) Family History Reviewed.: No Medication/Allergy Home Medications: Venlafaxine HCl [Venlafaxine HCl ER] 75 mg PO DAILY 07/02/16 Aspirin [Ecotrin 81 mg EC Tablet] 81 mg PO DAILY 09/24/18 Clopidogrel Bisulfate [Plavix 75 mg Tablet] 75 mg PO DAILY 09/24/18 Tamsulosin HCl [Flomax 0.4 mg Cap.sr] 0.4 mg PO DAILY 09/24/18 Allergies/Adverse Reactions: Penicillins Allergy (Verified 09/24/18 08:23) Bgqjecg-Xow-Tez Reductase Inhibitor Allergy (Verified 09/24/18 08:23) Sulfa (Sulfonamide Antibiotics) Allergy (Verified 09/24/18 08:23) Review of Systems All systems: reviewed and no additional remarkable complaints except as stated - As mentioned in HPI Physical Exam Vital Signs: Temp Pulse Resp BP Pulse Ox 97.8 F 118/75 96 01/20/19 11:41 01/20/19 11:41 01/20/19 11:47 Intake & Output 01/19/19 01/20/19 01/21/19 06:59 06:59 06:59 Weight 198 lb 10.184 oz General appearance: PRESENT: no acute distress, well-developed, well-nourished Head exam: PRESENT: atraumatic, normocephalic Eye exam: PRESENT: conjunctiva pink, EOMI, PERRLA. ABSENT: scleral icterus Ear exam: PRESENT: normal external ear exam Mouth exam: PRESENT: moist, tongue midline Neck exam: ABSENT: carotid bruit, JVD, lymphadenopathy, thyromegaly Respiratory exam: PRESENT: clear to auscultation anderson. ABSENT: rales, rhonchi, wheezes Cardiovascular exam: PRESENT: RRR, systolic murmur - ??faint systolic murmur radiating to left carotid. ABSENT: diastolic murmur, rubs Pulses: PRESENT: normal dorsalis pedis pul GI/Abdominal exam: PRESENT: normal bowel sounds, soft. ABSENT: distended, guarding, mass, organolmegaly, rebound, tenderness Rectal exam: PRESENT: deferred Neurological exam: PRESENT: alert, awake, oriented to person, oriented to place, oriented to time, oriented to situation, CN II-XII grossly intact. ABSENT: motor sensory deficit Results Laboratory Results: 01/20/19 11:52 01/20/19 11:52 01/20/19 01/20/19 11:52 11:52 WBC 8.8 RBC 4.53 Hgb 14.0 Hct 41.0 MCV 91 MCH 30.9 MCHC 34.1 RDW 13.4 Plt Count 273 Seg Neutrophils % 75.9 Lymphocytes % 14.4 Monocytes % 7.3 Eosinophils % 1.3 Basophils % 1.1 Absolute Neutrophils 6.7 Absolute Lymphocytes 1.3 Absolute Monocytes 0.6 Absolute Eosinophils 0.1 Absolute Basophils 0.1 Sodium 139.5 Potassium 4.6 Chloride 102 Carbon Dioxide 29 Anion Gap 9 BUN 20 Creatinine 1.33 H Est GFR ( Amer) > 60 Est GFR (Non-Af Amer) 54 L Glucose 119 H Calcium 8.8 Total Bilirubin 1.0 AST 37 ALT 47 Alkaline Phosphatase 59 Total Protein 6.8 Albumin 3.8 01/20/19 11:52 Troponin I < 0.012 Impressions: Chest X-Ray 01/20/19 11:47 IMPRESSION: NO ACUTE RADIOGRAPHIC FINDING IN THE CHEST. Assessment and Plan - Diagnosis (1) Syncope Qualifiers: Syncope type: unspecified Qualified Code(s): R55 - Syncope and collapse Is this a current diagnosis for this admission?: Yes Plan: Check orthostatic vital signs. He does have prior bilateral carotid endarterectomy. Will reassess with carotid Dopplers. As mentioned, previous no yamile mention he is a known JUAN and was noncompliant to CPAP although patient and denies this. Discussed with patient and to pursue sleep study testing on discharge. (2) Hypotension Is this a current diagnosis for this admission?: Yes Plan: Resolved. Patient did say that he did not eat or drink yesterday as he slept most of the day yesterday. Continue IV fluids. (3) DEBBI (acute kidney injury) Is this a current diagnosis for this admission?: Yes Plan: Likely prerenal. Continue IV fluids. Repeat BMP tomorrow. (4) Carotid artery stenosis Qualifiers: Laterality: bilateral Qualified Code(s): I65.23 - Occlusion and stenosis of bilateral carotid arteries Is this a current diagnosis for this admission?: Yes Plan: History of bilateral carotid endarterectomy and prior history of TIAs. Patient is on both aspirin and clopidogrel. (5) Obstructive sleep apnea Is this a current diagnosis for this admission?: Yes Plan: Emphasized pursuing sleep study outpatient. Will order for an overnight pulse oximetry. - Time Time Spent with patient: 25-34 minutes
--- NOTE | 2019-01-20 17:10 | ADVANCED CARE ---
- Diagnosis (1) Syncope Diagnosis Current: Yes (2) DEBBI (acute kidney injury) Diagnosis Current: Yes (3) Hypotension Diagnosis Current: Yes Resuscitation Status: Full Code Discussion: Discussed with patient and at bedside. He states that he was DNR/DNI before but has changed his mind about this and wants to be full code at this time. He says he would want chest compressions, defibrillation and mechanical ventilation if the need arises. His is his surrogate decision maker.
--- NOTE | 2019-01-20 20:24 | RADIOLOGY REPORT (SQ) ---
EXAM DESCRIPTION: RadLex: CT HEAD WITHOUT IV CONTRAST CLINICAL HISTORY: 63 years Male; syncope, ?seizure TECHNIQUE: Noncontrast CT head. All CT scans at this facility use dose modulation, iterative reconstruction, and/or weight based dosing when appropriate to reduce radiation dose to as low as reasonably achievable. COMPARISON: 09/24/2018 CT FINDINGS: Gao matter, white matter, ventricles, and cisterns are within normal limits. No acute hemorrhage or mass effect. Visualized portions of paranasal sinuses and mastoids are clear. Visualized portions of the calvarium are within normal limits. IMPRESSION: 1. No acute intracranial findings.
[2019-01-20] MEDS: OXYCODONE HCL IR 5 MG TABLET PO PRN (21:04)
[2019-01-20] MEDS: OXYCODONE-ACETAMINOPHEN 5-325 MG TABLET PO PRN (21:04)
[2019-01-20] MEDS: HEPARIN SOD (PORCINE) 5,000 UNIT/ML 1 ML SYRINGE SUBCUT SCH (21:06)
[2019-01-20 21:17] LABS: URINE AMPHETAMINES SCREEN NEGATIVE; URINE BARBITURATES SCREEN NEGATIVE; URINE BENZODIAZEPINES SCREEN NEGATIVE; URINE COCAINE SCREEN NEGATIVE; URINE METHADONE SCREEN NEGATIVE; URINE PHENCYCLIDINE SCREEN NEGATIVE
[2019-01-20 21:24] LABS: URINE MARIJUANA (THC) SCREEN UNCONFIRMED POSITIVE
[2019-01-20] MEDS ORDERED: ASPIRIN 81 MG TABLET, ENT COATED PO SCH (22:00)
[2019-01-20] MEDS ORDERED: TAMSULOSIN HCL 0.4 MG CAP.SR.24H PO SCH (22:00)
[2019-01-20] MEDS ORDERED: CLOPIDOGREL BISULFATE 75 MG TABLET PO SCH (22:00)
[2019-01-21] MEDS: NORMAL SALINE 1000 ML 1,000 ML IV PRN (00:31)
[2019-01-21 07:50] LABS: ANION GAP 8 (5-19); BLOOD UREA NITROGEN 17 mg/dL (7-20); CALCIUM 8.8 mg/dL (8.4-10.2); CARBON DIOXIDE 27 mmol/L (22-30); CHLORIDE 106 mmol/L (98-107); GLUCOSE 98 mg/dL (75-110); POTASSIUM 4.8 mmol/L (3.6-5.0); SODIUM 140.7 mmol/L (137-145)
[2019-01-21] MEDS: HEPARIN SOD (PORCINE) 5,000 UNIT/ML 1 ML SYRINGE SUBCUT SCH (09:47)
[2019-01-21] MEDS ORDERED: ASPIRIN 81 MG TABLET, ENT COATED PO SCH (10:00)
[2019-01-21] MEDS ORDERED: CLOPIDOGREL BISULFATE 75 MG TABLET PO SCH (10:00)
[2019-01-21] MEDS ORDERED: TAMSULOSIN HCL 0.4 MG CAP.SR.24H PO SCH (10:00)
[2019-01-21] MEDS ORDERED: VENLAFAXINE HCL 75 MG CAP.SR.24H PO SCH (10:00)
--- NOTE | 2019-01-21 15:17 | RADIOLOGY REPORT (SQ) ---
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 TECHNIQUE: Grayscale ultrasound, Doppler velocity and spectra, and color Doppler images acquired of the extra-cranial carotid and vertebral arteries. Images stored on PACS. LIMITATIONS: None. FINDINGS: RIGHT CAROTID CCA Velocities: Within normal limits. Right common carotid artery peak systolic velocity 0.8 m/sec ICA Velocities Peak systolic 0.83 m/s. End diastolic 0.30 m/s. Proximal ICA/CCA peak systolic ratio 1.5. Spectra normal. No significant plaque. LEFT CAROTID CCA Velocities: Within normal limits. Left common carotid artery peak systolic velocity 0.8 m/sec. Mild intimal thickening in the left common carotid artery ICA Velocities Peak systolic 0.61 m/s. End diastolic 0.21 m/s. Proximal ICA/CCA peak systolic ratio 0.8. Spectra normal. No significant plaque. VERTEBRAL ARTERIES: Antegrade flow. Normal waveforms. SUBCLAVIAN ARTERIES: Not evaluated OTHER: No other significant finding. IMPRESSION: NO HEMODYNAMICALLY SIGNIFICANT STENOSIS. COMMENT: Quality ID #[id number]: Velocity criteria are extrapolated from the diameter data as defined by t he Society of Radiologists in Ultrasound Consensus Conference. Radiology 2003: 229; 340-346. TECHNICAL DOCUMENTATION: JOB ID: [id number] [employer]- All Rights Reserved Reading location - IP/workstation name: [email or web address]
[2019-01-21] MEDS: OXYCODONE-ACETAMINOPHEN 5-325 MG TABLET PO PRN (15:38)
[2019-01-21] MEDS: OXYCODONE HCL IR 5 MG TABLET PO PRN (15:38)
[2019-01-21 18:00] VITALS: BP 162/78
--- NOTE | 2019-01-21 19:00 | XCELERA REPORT ---
[address] [address] Transthoracic Echocardiogram Report Name: MARYCARMEN AJ III, III Age: 63 yrs Gender: Male : 1955 Patient Status: Inpatient Patient Location: [address] [place] [address] Study Date: 01/21/2019 10:12 AM Height: 68 in Weight: 198 lb BSA: 2.0 m2 Procedure: A two-dimensional transthoracic echocardiogram with color flow and Doppler was performed. Study Quality: Fair. Reason For Study: recurrent syncope, faint systolic murmur History: recurrent syncope, faint systolic murmur. Ordering Physician: ROMEO CABRAL Performed By: Mago Godfrey Interpretation Summary The left ventricle is normal in size. There is normal left ventricular wall thickness. The left ventricular ejection fraction is within normal limits. LV EF is 65% Doppler measurements suggest impaired left ventricular relaxation, which is associated with grade I/IV or mild diastolic dysfunction The left ventricular wall motion is normal. There is no thrombus. No ASD , VSD , or PFO seen. The right ventricle is not well visualized secondary to technical limitations The right atrium is normal. The left atrial size is normal. There is no evidence of mitral valve prolapse. There is no vegetation seen on the mitral valve. There is no mitral valve stenosis. There is a trace amount of mitral regurgitation There is no aortic valvular vegetation. There is aortic sclerosis without aortic stenosis. There is no LVOT obstruction. No aortic regurgitation is present. There is a trace amount of tricuspid regurgitation No significant pulmonary hypertension.RVSP is 29 to 34 mm of Hg , with RA mean of 5 to 10. There is no pulmonic valvular stenosis. There is a trace amount of pulmonic regurgitation The aortic root is normal size. The inferior vena cava appeared normal and decreased > 50% with respiration (RAP 5-10 mmHg) There is no pericardial effusion. MMode/2D Measurements & Calculations RVDd: 3.4 cm LVIDd: 4.7 cm FS: 38.5 % Ao root diam: 2.9 cm IVSd: 1.0 cm LVIDs: 2.9 cm EDV(Teich): Ao root area: LVPWd: 1.0 cm 100.0 ml 6.8 cm2 ESV(Teich): 31.1 mlLA dimension: 3.6 cm EF(Teich): 68.9 % LVLd ap4: 7.9 cm SV(MOD-sp4): EDV(MOD-sp4): 57.0 ml 92.0 ml LVLs ap4: 5.4 cm ESV(MOD-sp4): 35.0 ml EF(MOD-sp4): 62.0 % Doppler Measurements & Calculations MV E max sandrita: MV P1/2t max sandrita: Ao V2 max: LV V1 max P.4 cm/sec 83.9 cm/sec 177.1 cm/sec 4.9 mmHg MV A max sandrita: MV P1/2t: 68.6 msec Ao max PG: LV V1 max: 88.4 cm/sec MVA(P1/2t): 3.2 cm2 12.6 mmHg 111.1 cm/sec MV E/A: 0.96 MV dec slope: 358.0 cm/sec2 MV dec time: 0.23 sec PA V2 max: PI end-d sandrita: TR max sandrita: MV P1/2t-pr_phl: 93.3 cm/sec 90.1 cm/sec 244.3 cm/sec 68.6 msec PA max PG: TR max P.5 mmHg 23.9 mmHg Left Ventricle The left ventricle is normal in size. There is normal left ventricular wall thickness. The left ventricular ejection fraction is within normal limits. LV EF is 65%. Doppler measurements suggest impaired left ventricular relaxation, which is associated with grade I/IV or mild diastolic dysfunction. The left ventricular wall motion is normal. There is no thrombus. No ASD , VSD , or PFO seen. Right Ventricle The right ventricle is not well visualized secondary to technical limitations. Atria The right atrium is normal. The left atrial size is normal. Mitral Valve There is no evidence of mitral valve prolapse. There is no vegetation seen on the mitral valve. There is no mitral valve stenosis. There is a trace amount of mitral regurgitation. Aortic Valve There is no aortic valvular vegetation. There is aortic sclerosis without aortic stenosis. There is no LVOT obstruction. No aortic regurgitation is present. Tricuspid Valve There is no tricuspid stenosis. There is a trace amount of tricuspid regurgitation. No significant pulmonary hypertension.RVSP is 29 to 34 mm of Hg , with RA mean of 5 to 10. Pulmonic Valve There is no pulmonic valvular stenosis. There is a trace amount of pulmonic regurgitation. Great Vessels The aortic root is normal size. The inferior vena cava appeared normal and decreased > 50% with respiration (RAP 5-10 mmHg). Effusions There is no pericardial effusion. : ROMEO CABRAL > Katey Lorenzo
--- NOTE | 2019-01-22 11:30 | PDOC DISCHARGE SUMMARY ---
General - Admit/Disc Date/PCP Admission Date/Primary Care Provider: 01/20/19 14:15 OSCAR FLETCHER MD Discharge Date: 01/21/19 - Additional Information Resuscitation Status: Full Code Home Medications: Venlafaxine HCl [Venlafaxine HCl ER] 75 mg PO DAILY 07/02/16 Aspirin [Ecotrin 81 mg EC Tablet] 81 mg PO QHS 09/24/18 Clopidogrel Bisulfate [Plavix 75 mg Tablet] 75 mg PO QHS 09/24/18 Tamsulosin HCl [Flomax 0.4 mg Cap.sr] 0.4 mg PO QHS 09/24/18 Oxycodone HCl/Acetaminophen [Percocet 7.5-325 mg Tablet] 1 each PO Q12HP PRN 01/21/19 History of Present Illness History of Present Illness: MARYCARMEN AJ III is a 63 year old male with a past medical history of chronic low back pain, depression, BPH, hypertension, prior history of TIAs x3 and history of bilateral carotid endarterectomy who was brought in due to syncope. This baseline. is at the bedside. Patient has been apparently fine and to this morning around 10:30 in the morning. says that they were talking to each other on the couch and that the next minute she noted he was unconscious with his head slouch against the back of the couch. She says he will try to stimulate him and he regained consciousness after 1 to 2 minutes. No urinary or bowel incontinence. He says she did notice that he was gurgling and it did not appear that he was spontaneously breathing. She says she checked his blood pressure at that time and it was low at 71/40. She called EMS and upon asse ssment by EMS, his pressure was noted to be at 60/44. He was given IV fluids and his blood pressures recovered. Patient is back to his baseline. He does say that he had some photo sensitive prior to the syncopal episode. He denies prior history of seizure. Denies chest pain or palpitations. Patient has had prior episodes of syncope before. In his previous admission, it was initially suspected polypharmacy from opiates contributed to his symptoms as he was previously on methadone, oxycodone and fentanyl patches before for his chronic low back pain. Patient and says that he has been taking all of these medications for several months now. He does say that he only takes oxycodone rarely for severe flare of his back pain. Previous notes mentioned that patient has a known sleep apnea and has not been compliant to CPAP. However patient and says that he has not had a sleep s tudy before although this has been recommended by his PCP. Hospital Course Hospital Course: This is 63 years old male patient with past medical history of hypertension and chronic back pain presented after he suddenly passed out. At admission patient was found to be hypotensive with blood pressure of 70/40. His blood pressure corrected his acute kidney also resolved. His morning I seen patient sitting on chair he is awake alert oriented. He is not in pain or distress. Echocardiogram and bilateral carotid Doppler has done and the results pending. Both carotid doppler and Echo are unremarkable. Patient discharged in stable condition and advised to follow up with his PCP. Physical Exam Vital Signs: Temp Pulse Resp BP Pulse Ox 98.3 F 70 18 148/79 H 97 01/21/19 08:45 01/21/19 08:45 01/21/19 08:45 01/21/19 08:45 01/21/19 08:45 Pulse Oximeter Nocturnal Start: 01/20/19 16:05 Freq: RTQ4 Status: Complete Protocol: Document 01/21/19 06:18 CMI (Rec: 01/21/19 06:18 CMI [id number]) Nocturnal Pulse Oximetry Equipment Usage Equipment Discontinued Continuous SpO2 Machine # 5 Intake & Output 01/20/19 01/21/19 01/22/19 06:59 06:59 06:59 Intake Total 2240 Balance 2240 Weight 88.2 kg General appearance: PRESENT: no acute distress Eye exam: PRESENT: conjunctiva pink Neck exam: ABSENT: carotid bruit, JVD, lymphadenopathy, thyromegaly Respiratory exam: PRESENT: clear to auscultation anderson. ABSENT: rales, rhonchi, wheezes Cardiovascular exam: PRESENT: RRR. ABSENT: diastolic murmur, rubs, systolic murmur GI/Abdominal exam: PRESENT: normal bowel sounds, soft. ABSENT: distended, guarding, mass, organolmegaly, rebound, tenderness Neurological exam: PRESENT: alert, awake, oriented to person, oriented to place, oriented to time, oriented to situation Results Laboratory Results: 01/20/19 11:52 01/21/19 06:34 01/20/19 01/20/19 01/20/19 11:52 11:52 11:52 WBC 8.8 RBC 4.53 Hgb 14.0 Hct 41.0 MCV 91 MCH 30.9 MCHC 34.1 RDW 13.4 Plt Count 273 Seg Neutrophils % 75.9 Lymphocytes % 14.4 Monocytes % 7.3 Eosinophils % 1.3 Basophils % 1.1 Absolute Neutrophils 6.7 Absolute Lymphocytes 1.3 Absolute Monocytes 0.6 Absolute Eosinophils 0.1 Absolute Basophils 0.1 Sodium 139.5 Potassium 4.6 Chloride 102 Carbon Dioxide 29 Anion Gap 9 BUN 20 Creatinine 1.33 H Est GFR ( Amer) > 60 Est GFR (Non-Af Amer) 54 L Glucose 119 H Calcium 8.8 Total Bilirubin 1.0 AST 37 ALT 47 Alkaline Phosphatase 59 Total Protein 6.8 Albumin 3.8 TSH 2.17 01/21/19 06:34 WBC RBC Hgb Hct MCV MCH MCHC RDW Plt Count Seg Neutrophils % Lymphocytes % Monocytes % Eosinophils % Basophils % Absolute Neutrophils Absolute Lymphocytes Absolute Monocytes Absolute Eosinophils Absolute Basophils Sodium 140.7 Potassium 4.8 Chloride 106 Carbon Dioxide 27 Anion Gap 8 BUN 17 Creatinine 0.98 Est GFR ( Amer) > 60 Est GFR (Non-Af Amer) > 60 Glucose 98 Calcium 8.8 Total Bilirubin AST ALT Alkaline Phosphatase Total Protein Albumin TSH 01/20/19 01/20/19 11:52 17:19 Troponin I < 0.012 < 0.012 Impressions: Chest X-Ray 01/20/19 11:47 IMPRESSION: NO ACUTE RADIOGRAPHIC FINDING IN THE CHEST. Head CT 01/20/19 15:29 IMPRESSION: 1. No acute intracranial findings. Qualifiers - * PATIENT BEING DISCHARGED WITH ANY OF THE FOLLOWING DIAGNOSIS: No Acute Heart Failure Is this a Heart Failure Patient?: No
== END 2019-01-21 20:55 | disposition home or self-care (01) ==
LOC: ER 11:33 → EH 14:15 → 5 15:55
PROVIDERS: ADMIT Internal Medicine; ATTEND Internal Medicine
DX: R55 Syncope and collapse (principal); I95.9 Hypotension, unspecified; N17.9 Acute kidney failure, unspecified; G47.33 Obstructive sleep apnea (adult) (pediatric); G89.29 Other chronic pain; M54.5 Low back pain; G47.30 Sleep apnea, unspecified; M19.90 Unspecified osteoarthritis, unspecified site; F32.9 Major depressive disorder, single episode, unspecified; N40.0 Benign prostatic hyperplasia without lower urinary tract symptoms; I65.23 Occlusion and stenosis of bilateral carotid arteries; E86.0 Dehydration; Z79.82 Long term (current) use of aspirin; Z79.899 Other long term (current) drug therapy; Z91.14 Patient's other noncompliance with medication regimen; Z86.73 Personal history of transient ischemic attack (TIA), and cerebral infarction without residual deficits; Z98.890 Other specified postprocedural states; Z82.49 Family history of ischemic heart disease and other diseases of the circulatory system; Z79.02 Long term (current) use of antithrombotics/antiplatelets
CPT/HCPCS: 93005; 99285; 96360; 96361; 36415 ×2; 84443; 85025; 80048; 80053; 84484; 80307; 82533; 93306; 93880; 71045; 70450; 93010; 94762; G0378 ×3; J1644 ×2; A9270 ×8; J3490; J7030 ×2

== ENCOUNTER → 2019-12-25 | Outpatient (CLI) | payer MEDICARE, OTHER ==
--- NOTE | 2019-12-25 11:34 | ER RDC ASSESSMENT REPORT ---
Intake - In the Last 14 days Have you traveled outside [place]?: No Have you been in close contact with someone CONFIRMED: No Worked in Healthcare?: No - Symptoms Subjective Fever([place] feverish): Yes Chills: Yes Muscule Aches: Yes Runny Nose: Yes Sore Throat: No Cough (New or worsening chronic cough): Yes Shortness of breath: Yes Nausea or Vomiting: Yes Headache: Yes Abdominal Pain: No Diarrhea(3 or more loose stools in last 24 hours): Yes - Do you have any of the following Chronic lung disease: Asthma or emphysema or COPD: Yes Chronic Lung Disease Comment: History of COPD Diabetes: No High Blood Pressure: Yes Cardiovascular Disease: Yes Chronic Kidney Disease: No Chronic Liver Disease: No Chronic blood disorder like Sickle Cell Disease: No Weak immune system due to disease or medication: No Neurologic condition that limits movement: No Developmental delay - Moderate to Severe: No Recent (within past 2 weeks) or current : No Morbid Obesity (>100 pounds over ideal weight): No Obesity Comment: Height 5 feet 7 inches weight 178 pounds - Objective Temperature: 97.4 F Pulse Rate: 73 Respiratory Rate: 20 Blood Pressure: 140/99 O2 Sat by Pulse Oximetry: 97 Objective: Given above, testing performed: If Testing Performed: Test Specimen Type Sent to General - General Information source: Patient Notes: Here at [facility] for COVID testing. Reports has been ill since early November following shoulder surgery. Reports an occasional cough. Has been having more GI symptoms diarrhea some nausea has felt feverish with muscle aches. Ports has been in touch with primary care provider. Has a history of COPD and smoke marijuana. - Related Data Allergies/Adverse Reactions: Penicillins Allergy (Verified 09/24/18 08:23) Lpmjlwf-Vlx-Trl Reductase Inhibitor Allergy (Verified 09/24/18 08:23) Sulfa (Sulfonamide Antibiotics) Allergy (Verified 09/24/18 08:23) Past Medical History - Social History Smoking Status: Current Every Day Smoker Cigarette use (# per day): Yes - smoke Maraju[place] Smoking Education Provided: Yes Family History: None - Past Medical History Cardiac Medical History: Reports: Hx Hypertension Renal/ Medical History: Denies: Hx Peritoneal Dialysis GI Medical History: Denies: Hx Gastroesophageal Reflux Disease Musculoskeletal Medical History: Reports Hx Arthritis Psychiatric Medical History: Reports: Hx Depression Past Surgical History: Reports: Hx Orthopedic Surgery - back, shoulder, Hx Vascular Surgery - carotid artery clean out Physical Exam - General General appearance: Appears well, Alert In distress: None Notes: PHYSICAL EXAMINATION: GENERAL: Well-appearing and in no acute distress. HEAD: Atraumatic, normocephalic. EYES: sclera anicteric, conjunctiva are normal. ENT: nares patent. Moist mucous membranes. NECK: Normal range of motion, supple without lymphadenopathy LUNGS: CTAB and equal. No wheezes rales or rhonchi. Resp even and unlabored. Lung sounds clear HEART: Regular rate and rhythm without murmurs ABDOMEN: Soft, nontender, normal bowel sounds, no guarding. EXTREMITIES: No cyanosis. NEUROLOGICAL: Normal speech. PSYCH: Normal mood, normal affect. SKIN: Warm, Dry, normal turgor, no rashes or lesions noted Diagnostic Results Laboratory Results: Patient instructed of negative rapid strep and negative rapid flu results. Pending strep culture pending COVID testing results provided instructions for COVID to include: As a person under investigation for Covid 19, the [facility] of Health and Human Services, division of public health advises you to adhere to the following guidance until your test results are reported to you. If your test result is positive, you will receive additional information from your provider and your local health department at that time. Remain at home until you are cleared by the health provider or public health authorities. Keep a log of visitors to your home, notify any visitors to your home of your isolation status. If you plan to move to a new address or leave the [facility], notify the local health department in your County. Call your doctor or seek care if you have an urgent medical need. Before seeking medical care, call ahead to get instructions from the provider before arriving at the medical office clinic or hospital. Notify them that you are being tested for the virus that causes Covid 19 so that arrangements can be made, as necessary, to prevent transmission to others in the healthcare setting. Next, notify the local health department in your county. If a medical emergency arises and you need to call 911, inform the first responders that you are being tested for the virus that causes Covid 19. Next, notify the local health department in your county. Patient Education/Counseling Counseling/Education: Patient presents with upper respiratory symptoms worrisome for possible Covid 19. Patient does not have emergency worring symptoms such as difficulty breathing, shortness of breath, chest pain, pressure, confusion or cyanosis. Patient appears suitable for discharge. Patient to follow up with PCP today. Instructed to go to ED for persistent or worsening symptoms. Patient's vital s igns are stable and patient is nontoxic in appearance. Good return precautions have been discussed with patient, patient verbalized understanding and is agreeable with discharge plan of care at this time. RDC Discharge - Discharge Clinical Impression: COVID - 19 SCREENING Condition: Stable Disposition: Home; Selfcare
[2019-12-25 11:43] VITALS: BP 140/99
[2019-12-25 13:25] LABS: A TYPE INFLUENZA AG NEGATIVE (NEGATIVE); B INFLUENZA AG NEGATIVE (NEGATIVE)
== END ==
LOC: RDC 11:02
PROVIDERS: ATTEND Nurse Practitioner Family
DX: Z20.828 Contact with and (suspected) exposure to other viral communicable diseases (principal); R50.9 Fever, unspecified; R05 Cough; R06.02 Shortness of breath; J44.9 Chronic obstructive pulmonary disease, unspecified; M79.10 Myalgia, unspecified site; R11.0 Nausea; R51 Headache; R19.7 Diarrhea, unspecified; R09.89 Other specified symptoms and signs involving the circulatory and respiratory systems; I10 Essential (primary) hypertension; F17.210 Nicotine dependence, cigarettes, uncomplicated; F12.90 Cannabis use, unspecified, uncomplicated; Z88.0 Allergy status to penicillin; Z88.8 Allergy status to other drugs, medicaments and biological substances
CPT/HCPCS: 87070; 87880; 87804; U0003; G0463; 87635; 99211

== ENCOUNTER 2019-12-27 11:37 | Emergency (ER) | payer MEDICARE, OTHER ==
--- NOTE | 2019-12-27 12:14 | ER Document Report ---
ED General - General Chief Complaint: hypertension Stated Complaint: BLOOD PRESSURE ISSUES Time Seen by Provider: 12/27/19 11:45 Primary Care Provider: OSCAR FLETCHER MD [Primary Care Provider] - Follow up as needed TRAVEL OUTSIDE OF THE [place] IN LAST 30 DAYS: No - HPI Notes: Patient is a 64-year-old male who presents to the emergency department for evaluation. First he states his blood pressure was high. He had a reading of 170s over 90s earlier today. He took his blood pressure because he felt a tingling on the top of his head. He also has some left lower back pain. The patient was recently started on blood pressure medication just a few weeks ago. He states he has not checked his blood pressure since having been started on it because he "felt fine." Patient also states his left lower back pain feels like it might "be his kidney." He denies any fevers or chills. No nausea or vomiting. No dysuria, hematuria, urinary frequency. He denies any bowel or bladder incontinence, no saddle anesthesia, no focal numbness or weakness. - Related Data Allergies/Adverse Reactions: Penicillins Allergy (Verified 12/27/19 12:38) Smszsel-Uhc-Doo Reductase Inhibitor Allergy (Verified 12/27/19 12:38) Sulfa (Sulfonamide Antibiotics) Allergy (Verified 12/27/19 12:38) Home Medications: Metoprolol, Plavix, valacyclovir, oxycodone, Effexor Past Medical History - General Information source: Patient - Social History Smoking Status: Never Smoker Frequency of alcohol use: None Drug Abuse: Marijuana Family History: None Patient has homicidal ideation: No - Past Medical History Cardiac Medical History: Reports: Hx Hypertension Neurological Medical History: Reports: Other - TIA Renal/ Medical History: Denies: Hx Peritoneal Dialysis GI Medical History: Denies: Hx Gastroesophageal Reflux Disease Musculoskeletal Medical History: Reports Hx Arthritis Psychiatric Medical History: Reports: Hx Depression Past Surgical History: Reports: Hx Orthopedic Surgery - back, shoulder, Hx Vascular Surgery - carotid artery clean out - Immunizations Hx Diphtheria, Pertussis, Tetanus Vaccination: Yes Review of Systems - Review of Systems Musculoskeletal: See HPI Neurological/Psychological: See HPI -: Yes All other systems reviewed and negative Physical Exam - Vital signs Vitals: Temp Pulse Resp BP Pulse Ox 98.1 F 81 18 183/84 H 97 12/27/19 11:43 12/27/19 11:43 12/27/19 11:43 12/27/19 11:43 12/27/19 11:43 - Notes Notes: Vital signs reviewed, please refer to chart. Head is normocephalic, atraumatic. Pupils equal round, reactive to light. Neck is supple without meningismus. Heart is regular rate and rhythm. Lungs are clear to auscultation bilaterally. Abdomen is soft, nontender, normoactive bowel sounds throughout. Extremities without cyanosis, clubbing. Examination of the spine yields a well-healed surgical scar over the lower lumbar spine with no signs of dehiscence or erythema. He has no midline tenderness or step-off. He has paraspinal musculature tenderness noted from approximately L3-L5, and of the SI joint on the left with associated spasm. Negative straight leg raise bilaterally. posterior calves are nontender. Peripheral pulses are equal. Skin is warm and dry. Patient is awake, alert, oriented x3. Cranial nerves II - XII are grossly intact without focal neurological deficits. Strength is plus 5 out of 5 bilateral upper and lower extremities. Sensation is intact. Reflexes symm etrical. Intact [id number], rapid alternating movements, [id number]. Course - Re-evaluation Re-evalutation: 12/27/19 12:13 Patient presents to the emergency department for evaluation. Laboratory vesication's are ordered and obtained. The patient states he thought it was his kidney, but his pain is very reproducible on his lower lumbar spine, I do not believe this is consistent with CVA tenderness. Beyond that he has no urinary or constitutional symptoms. I will get a urinalysis and some basic blood work. I explained to the patient that pain and anxiety can increase his blood pressure. I encouraged him to keep an eye on it closely, but I am not seeing any signs of endorgan damage. He has a normal neurological exam. Awaiting blood work, we will continue to monitor. 12/27/19 13:12 Patient's laboratory investigations are unremarkable. Urinalysis fails to reveal any signs of bleeding or infection. I suspect his back pain is musculoskeletal. We talked at length about blood pressure, and he needs to fo llow-up with his primary care provider in regards to this issue. He is not showing any signs of endorgan damage. He is to continue his antihypertensive, follow-up with primary care. I will send him home with a mild muscle relaxer and close follow-up. He is to return to the ED with worsening. - Vital Signs Vital signs: Temp Pulse Resp BP Pulse Ox 98.1 F 81 18 183/84 H 97 12/27/19 11:52 12/27/19 11:43 12/27/19 11:43 12/27/19 11:43 12/27/19 11:43 - Laboratory Result Diagrams: 12/27/19 12:20 12/27/19 12:20 Laboratory results interpreted by me: 12/27/19 12:35 Urine Protein 30 H Discharge - Discharge Clinical Impression: Acute exacerbation of chronic low back pain Hypertension Qualifiers: Hypertension type: unspecified Qualified Code(s): I10 - Essential (primary) hypertension Condition: Stable Disposition: HOME, SELF-CARE Instructions: High Blood Pressure ([facility]), Low Back Pain ([facility]) Additional Instructions: Rest, stay well-hydrated. Continue to check your blood pressure, keep a record, and follow-up with your primary care doctor in regards to this issue. Your blood work here today was unremarkable. Your urine does not show any signs of infection. I suspect your back pain is musculoskeletal. Take muscle relaxer as needed, watch for drowsiness with this medication. Follow-up with your primary care doctor next week. Return to the emergency department with worsening or new concerning symptoms of any sort. Referrals: OSCAR FLETCHER MD [Primary Care Provider] - Follow up as needed
[2019-12-27 12:35] LABS: ABSOLUTE BASOPHILS # (AUTO) 0.1 10^3/uL (0.0-0.2); ABSOLUTE EOSINOPHILS # (AUTO) 0.2 10^3/uL (0.0-0.6); ABSOLUTE LYMPHOCYTES (AUTO) 2.3 10^3/uL (0.5-4.7); ABSOLUTE MONOCYTES (AUTO) 0.8 10^3/uL (0.1-1.4); ABSOLUTE NEUT (AUTO) 6.1 10^3/uL (1.7-8.2); BASOPHILS % (AUTO) 1.1 % (0-2); EOSINOPHILS % (AUTO) 2.6 % (0-6); HEMATOCRIT 41.1 % (37.9-51.0); HEMOGLOBIN 14.3 g/dL (13.5-17.0); LYMPHOCYTES % (AUTO) 24.5 % (13-45); MEAN CORPUSCULAR HEMOGLOBIN 31.6 pg (27.0-33.4); MEAN CORPUSCULAR HGB CONC 34.9 g/dL (32.0-36.0); MEAN CORPUSCULAR VOLUME 91 fl (80-97); MONOCYTES % (AUTO) 8.2 % (3-13); PLATELET COUNT 372 10^3/uL (150-450); RED BLOOD COUNT 4.53 10^6/uL (4.35-5.55); RED CELL DISTRIBUTION WIDTH 13.8 % (11.5-14.0); SEGMENTED NEUTROPHILS % (AUTO) 63.6 % (42-78); TOTAL CELLS COUNTED % (AUTO) 100 %; WHITE BLOOD COUNT 9.6 10^3/uL (4.0-10.5)
[2019-12-27 12:51] LABS: APPEARANCE,URINE CLEAR; BILIRUBIN,URINE NEGATIVE (NEGATIVE); COLOR,URINE YELLOW; GLUCOSE, URINE NEGATIVE (NEGATIVE); KETONES,URINE NEGATIVE (NEGATIVE); LEUKOCYTE ESTERASE,URINE NEGATIVE (NEGATIVE); NITRITE,URINE NEGATIVE (NEGATIVE); PROTEIN,URINE 30 mg/dL (NEGATIVE); URINE SPECIFIC GRAVITY 1.012; UROBILINOGEN,URINE NEGATIVE mg/dL (<2.0)
[2019-12-27 12:51] LABS: ALBUMIN 4.5 g/dL (3.5-5.0); ALKALINE PHOSPHATASE 101 U/L (38-126); ANION GAP 8 (5-19); ASPARTATE AMINO TRANSFERASE 28 U/L (17-59); BILIRUBIN,TOTAL 0.6 mg/dL (0.2-1.3); BLOOD UREA NITROGEN 17 mg/dL (7-20); CALCIUM 9.5 mg/dL (8.4-10.2); CARBON DIOXIDE 26 mmol/L (22-30); CHLORIDE 104 mmol/L (98-107); GLUCOSE 103 mg/dL (75-110); POTASSIUM 4.7 mmol/L (3.6-5.0); TOTAL PROTEIN 7.6 g/dL (6.3-8.2)
[2019-12-27 13:30] VITALS: BP 151/84
== END 2019-12-27 13:19 | disposition home or self-care (01) ==
LOC: ER 11:37
DX: M54.5 Low back pain (principal); I10 Essential (primary) hypertension; Z88.0 Allergy status to penicillin; Z88.2 Allergy status to sulfonamides; Z79.02 Long term (current) use of antithrombotics/antiplatelets; Z86.73 Personal history of transient ischemic attack (TIA), and cerebral infarction without residual deficits
CPT/HCPCS: 36415; 80053; 81001; 85025; 99283